=== PATIENT | male | born 1970 | race Hispanic/Latino ===

== ENCOUNTER 2018-03-05 18:42 | Emergency (ER) | payer OTHER ==
[2018-03-05 19:47] LABS: HEMATOCRIT 43.7 % (42-54); MEAN CORPUSCULAR HGB CONC 34.1 g/dL (32.0-36.0); MEAN CORPUSCULAR VOLUME 90.9 fL (79-99); PLATELET COUNT (AUTO) 196 K/uL (130-400); RED CELL DISTRIBUTION WIDTH 13.3 % (11.0-15.5); WHITE BLOOD COUNT (AUTO) 21.9 K/uL (4.8-10.8)
[2018-03-05] MEDS ORDERED: CLINDAMYCIN 600 MG/D5% WATER 50 ML IV ONE (19:47)
[2018-03-05 20:03] LABS: CREATININE 2.8 mg/dL (0.5-1.5); POTASSIUM 3.6 mmol/L (3.5-5.1)
[2018-03-05 20:06] LABS: INR 1.1 (0.85-1.15); PARTIAL THROMBOPLASTIN TIME 24.7 SEC (26.3-35.5); PROTHROMBIN TIME 11.3 SEC (9.6-11.6)
[2018-03-05 20:12] LABS: B-TYPE NATRIURETIC PEPTIDE 147 pg/mL (0-100)
[2018-03-05 20:17] LABS: BAND NEUTROPHILS % (MANUAL) 24 % (0-2); METAMYELOCYTES % 3 % (0-0); MONOCYTES % (MANUAL) 2 % (2-9); PLATELET MORPHOLOGY COMMENT ADEQUATE; SEGMENTED NEUTROPHILS % 71 % (40-70)
[2018-03-05 20:18] LABS: ALBUMIN 3.5 g/dL (3.5-5.0); CREATINE KINASE MB 1.1 ng/mL (0.5-3.6); CRP QUANTITATIVE 113.3 mg/L (0.00-9.0); TOTAL PROTEIN, SERUM 7.9 g/dL (6.0-8.3)
[2018-03-05 20:51] LABS: ERYTHROCYTE SEDIMENTATION RATE 6 MM/HR (0-15)
== END 2018-03-05 21:14 | disposition home or self-care (01) ==
LOC: EDH 18:42
DX: L03.116 Cellulitis of left lower limb (principal); I10 Essential (primary) hypertension; G47.30 Sleep apnea, unspecified
CPT/HCPCS: 36415; 71045; 80053; 82550; 82553; 83880; 84484; 85025; 85610; 85651; 85730; 86140; 93005; 93971; 96365; 99285; J3490

== ENCOUNTER 2018-03-09 12:40 | Inpatient (IN) | payer OTHER ==
[~2018-03-09] VITALS: Ht 175.3 cm; Wt 166.1 kg
[2018-03-09] MEDS ORDERED: VANCOMYCIN 1GM+NS 250ML 500 ML IV ONE (13:37)
[2018-03-09 13:42] LABS: BASOPHILS % (AUTO) 0.4 % (0.0-5.0); EOSINOPHILS % (AUTO) 0.6 % (0.0-8.0); HEMATOCRIT 42.4 % (42-54); LYMPHOCYTES % (AUTO) 10.1 % (21.0-51.0); MEAN CORPUSCULAR HEMOGLOBIN 30.4 pg (27.0-33.0); MEAN CORPUSCULAR HGB CONC 33.7 g/dL (32.0-36.0); MEAN CORPUSCULAR VOLUME 90.2 fL (79-99); MONOCYTES % (AUTO) 12.9 % (3.0-13.0); PLATELET COUNT (AUTO) 223 K/uL (130-400); WHITE BLOOD COUNT (AUTO) 12.2 K/uL (4.8-10.8)
[2018-03-09 13:58] LABS: CREATININE 0.9 mg/dL (0.5-1.5)
[2018-03-09 14:09] LABS: BILIRUBIN,TOTAL 0.4 mg/dL (0.2-1.0); TOTAL PROTEIN, SERUM 7.2 g/dL (6.0-8.3)
[2018-03-09] MEDS ORDERED: VANCOMYCIN 1.5 GM in SODIUM CHLORIDE 0.9% 250 ML IV ONE (16:30)
[2018-03-09] MEDS ORDERED: ACETAMINOPHEN 325 MG TAB PO PRN (16:45)
[2018-03-09] MEDS ORDERED: COMPOUND IV REFRIGERATED 1 EACH IVSOLN MISC PRN (16:45)
[2018-03-09 20:21] VITALS: BP 189/96
[2018-03-09 23:10] VITALS: BP 151/77
[2018-03-10] MEDS: ZOSYN 3.375GM+NS 50ML 50 ML IV SCH ×3 (02:39→18:17)
[2018-03-10 03:21] VITALS: BP 144/73
[2018-03-10 04:46] LABS: HEMATOCRIT 40.3 % (42-54); MEAN CORPUSCULAR HEMOGLOBIN 30.5 pg (27.0-33.0); MEAN CORPUSCULAR HGB CONC 33.9 g/dL (32.0-36.0); MEAN CORPUSCULAR VOLUME 89.9 fL (79-99); PLATELET COUNT (AUTO) 196 K/uL (130-400); RED BLOOD CELL COUNT(AUTO) 4.48 MIL/uL (4.50-6.20); RED CELL DISTRIBUTION WIDTH 14.1 % (11.0-15.5); WHITE BLOOD COUNT (AUTO) 11.1 K/uL (4.8-10.8)
[2018-03-10 04:54] LABS: CARBON DIOXIDE 30 mmol/L (21-32); CHLORIDE 97 mmol/L (101-111); CHOLESTEROL 147 mg/dL (<200); CREATININE 0.8 mg/dL (0.5-1.5); GLOMERULAR FILTR. RATE CALC 110 mL/min (>60); GLUCOSE,RANDOM 106 mg/dL (70-105); LDL DIRECT 96 mg/dL (0-99); POTASSIUM 3.9 mmol/L (3.5-5.1); SODIUM SERUM 135 mmol/L (136-145); TRIGLYCERIDES 265 mg/dL (30-200); UREA NITROGEN, BLOOD 13 mg/dL (7-18)
[2018-03-10 04:57] LABS: HEMOGLOBIN A1C 6.1 % (4.0-6.0)
[2018-03-10 04:59] LABS: HDL CHOLESTEROL < 10 mg/dL (29-71)
[2018-03-10] MEDS ORDERED: POTASSIUM CHLORIDE 10% ELIXIR 20 MEQ/15 ML UDCUP PO PRN (05:15)
[2018-03-10] MEDS ORDERED: POTASSIUM CHLORIDE 20MEQ/100ML 100 ML IV PRN (05:15)
[2018-03-10] MEDS ORDERED: DEXTROSE 50%-WATER 50 ML DISP.SYRIN IV PRN (05:15)
[2018-03-10] MEDS ORDERED: GLUCAGON 1MG KIT 1 MG ML IM PRN (05:15)
[2018-03-10] MEDS ORDERED: ACETAMINOPHEN 325 MG TAB PO PRN (05:15)
[2018-03-10] MEDS ORDERED: LIDOCAINE HCL-MPF 1% 2ML VIAL IJ PRN (05:15)
[2018-03-10] MEDS: SODIUM CHLORIDE 0.9% 1000ML 1,000 ML IV SCH (05:15)
[2018-03-10] MEDS: INSULIN R PO SS1 SQ SCH ×4 (05:59→20:16)
[2018-03-10] MEDS: VANCOMYCIN 1.75 GM in SODIUM CHLORIDE 0.9% 250 ML IV SCH ×2 (07:11→18:17)
[2018-03-10 08:21] VITALS: BP 159/83
[2018-03-10] MEDS: FAMOTIDINE 20MG TAB 20 MG TAB PO SCH ×2 (09:08→19:58)
[2018-03-10] MEDS: ENOXAPARIN SODIUM 30 MG/0.3 ML SQ SCH ×2 (09:09→20:03)
[2018-03-10 11:15] VITALS: BP 135/75
[2018-03-10] MEDS ORDERED: HYDRALAZINE HCL 20 MG/ML VIAL IV PRN (13:00)
[2018-03-10 18:00] VITALS: BP 130/67
[2018-03-10 20:00] VITALS: BP 142/74
[2018-03-11] VITALS: BP 140/74
[2018-03-11] MEDS: SODIUM CHLORIDE 0.9% 1000ML 1,000 ML IV SCH ×3 (01:15→11:47)
[2018-03-11] MEDS: ZOSYN 3.375GM+NS 50ML 50 ML IV SCH ×3 (02:16→18:21)
[2018-03-11 04:00] VITALS: BP 142/78
[2018-03-11] MEDS: INSULIN R PO SS1 SQ SCH ×3 (06:20→21:00)
[2018-03-11 06:48] LABS: BASOPHILS % (AUTO) 0.2 % (0.0-5.0); EOSINOPHILS % (AUTO) 1.4 % (0.0-8.0); HEMATOCRIT 40.4 % (42-54); LYMPHOCYTES % (AUTO) 14.1 % (21.0-51.0); MEAN CORPUSCULAR HEMOGLOBIN 30.8 pg (27.0-33.0); MEAN CORPUSCULAR VOLUME 90.7 fL (79-99); MONOCYTES % (AUTO) 13.7 % (3.0-13.0); NEUTROPHILS % (AUTO) 70.6 % (40.0-77.0); NUCLEATED RED BLOOD CELLS 0.1 % (0.0-0.19); PLATELET COUNT (AUTO) 241 K/uL (130-400); RED BLOOD CELL COUNT(AUTO) 4.46 MIL/uL (4.50-6.20); RED CELL DISTRIBUTION WIDTH 14.6 % (11.0-15.5); WHITE BLOOD COUNT (AUTO) 10.4 K/uL (4.8-10.8)
[2018-03-11 07:10] LABS: CREATININE 0.8 mg/dL (0.5-1.5); POTASSIUM 3.9 mmol/L (3.5-5.1)
[2018-03-11 08:03] VITALS: BP 145/87
[2018-03-11] MEDS: FAMOTIDINE 20MG TAB 20 MG TAB PO SCH ×2 (08:35→21:53)
[2018-03-11] MEDS: ENOXAPARIN SODIUM 30 MG/0.3 ML SQ SCH ×2 (08:36→21:55)
[2018-03-11] MEDS: VANCOMYCIN 1.75 GM in SODIUM CHLORIDE 0.9% 250 ML IV SCH ×3 (08:37→21:59)
[2018-03-11 11:09] VITALS: BP 145/94
[2018-03-11 16:03] VITALS: BP 157/94
[2018-03-11 20:00] VITALS: BP 150/92
[2018-03-12] VITALS: BP 150/96
[2018-03-12] MEDS: ZOSYN 3.375GM+NS 50ML 50 ML IV SCH ×3 (02:11→18:13)
[2018-03-12] MEDS: SODIUM CHLORIDE 0.9% 1000ML 1,000 ML IV SCH ×2 (02:17→18:13)
[2018-03-12 04:00] VITALS: BP 130/78
[2018-03-12] MEDS: INSULIN R PO SS1 SQ SCH ×4 (06:11→21:00)
[2018-03-12] MEDS: VANCOMYCIN 1.75 GM in SODIUM CHLORIDE 0.9% 250 ML IV SCH ×3 (06:25→22:13)
[2018-03-12 07:42] VITALS: BP 132/68
[2018-03-12] MEDS: ENOXAPARIN SODIUM 30 MG/0.3 ML SQ SCH ×2 (10:06→22:12)
[2018-03-12] MEDS: FAMOTIDINE 20MG TAB 20 MG TAB PO SCH ×2 (10:06→22:07)
[2018-03-12 11:08] VITALS: BP 145/91
[2018-03-12 16:17] VITALS: BP 143/87
[2018-03-12 20:00] VITALS: BP 158/90
[2018-03-13] VITALS: BP 142/96
[2018-03-13] MEDS: ZOSYN 3.375GM+NS 50ML 50 ML IV SCH ×3 (02:32→18:39)
[2018-03-13 04:00] VITALS: BP 166/94
[2018-03-13 06:05] LABS: HEMATOCRIT 37.6 % (42-54); MEAN CORPUSCULAR HEMOGLOBIN 30.9 pg (27.0-33.0); MEAN CORPUSCULAR HGB CONC 34.4 g/dL (32.0-36.0); NUCLEATED RED BLOOD CELLS 0.1 % (0.0-0.19); PLATELET COUNT (AUTO) 347 K/uL (130-400); RED BLOOD CELL COUNT(AUTO) 4.18 MIL/uL (4.50-6.20); RED CELL DISTRIBUTION WIDTH 14.5 % (11.0-15.5); WHITE BLOOD COUNT (AUTO) 9.9 K/uL (4.8-10.8)
[2018-03-13 06:21] LABS: ALBUMIN 2.4 g/dL (3.5-5.0); BILIRUBIN,TOTAL 0.7 mg/dL (0.2-1.0); CREATININE 0.9 mg/dL (0.5-1.5); TOTAL PROTEIN, SERUM 7.8 g/dL (6.0-8.3)
[2018-03-13] MEDS: INSULIN R PO SS1 SQ SCH ×4 (06:23→21:00)
[2018-03-13] MEDS: SODIUM CHLORIDE 0.9% 1000ML 1,000 ML IV SCH ×2 (07:20→13:15)
[2018-03-13] MEDS: VANCOMYCIN 1.75 GM in SODIUM CHLORIDE 0.9% 250 ML IV SCH ×3 (07:23→22:18)
[2018-03-13 07:48] VITALS: BP 153/88
[2018-03-13] MEDS: FAMOTIDINE 20MG TAB 20 MG TAB PO SCH ×2 (09:26→22:18)
[2018-03-13] MEDS: ENOXAPARIN SODIUM 30 MG/0.3 ML SQ SCH ×2 (09:27→22:20)
[2018-03-13 12:48] VITALS: BP 154/86
[2018-03-13 15:47] VITALS: BP 162/92
[2018-03-13 20:00] VITALS: BP 163/91
[2018-03-14] VITALS (7 sets, daily range): BP systolic 138–172; BP diastolic 85–104
[2018-03-14] MEDS: ZOSYN 3.375GM+NS 50ML 50 ML IV SCH ×2 (02:56→10:01)
[2018-03-14] MEDS: SODIUM CHLORIDE 0.9% 1000ML 1,000 ML IV SCH ×3 (03:06→19:15)
[2018-03-14] MEDS: INSULIN R PO SS1 SQ SCH ×4 (06:03→21:00)
[2018-03-14] MEDS: VANCOMYCIN 1.75 GM in SODIUM CHLORIDE 0.9% 250 ML IV SCH ×2 (06:26→14:00)
[2018-03-14] MEDS: FAMOTIDINE 20MG TAB 20 MG TAB PO SCH ×2 (07:32→21:59)
[2018-03-14] MEDS: ENOXAPARIN SODIUM 30 MG/0.3 ML SQ SCH ×2 (07:33→21:59)
[2018-03-14] MEDS ORDERED: CEFAZOLIN 1GM / D5W 50ML 50 ML IV SCH (11:30)
[2018-03-14] MEDS: CEFAZOLIN SODIUM 1 GM VIAL IVP SCH ×2 (13:42→21:59)
[2018-03-14] MEDS: HYDROCHLOROTHIAZIDE 25 MG TABLET PO SCH (18:18)
[2018-03-14] MEDS: VANCOMYCIN 1.5 GM in SODIUM CHLORIDE 0.9% 250 ML IV SCH (21:58)
[2018-03-15 03:00] VITALS: BP 142/97
[2018-03-15] MEDS: CEFAZOLIN SODIUM 1 GM VIAL IVP SCH ×3 (03:17→22:22)
[2018-03-15 04:05] LABS: HEMATOCRIT 38.1 % (42-54); MEAN CORPUSCULAR HEMOGLOBIN 30.5 pg (27.0-33.0); MEAN CORPUSCULAR HGB CONC 33.8 g/dL (32.0-36.0); MEAN CORPUSCULAR VOLUME 90.2 fL (79-99); NUCLEATED RED BLOOD CELLS 0.1 % (0.0-0.19); PLATELET COUNT (AUTO) 410 K/uL (130-400); RED BLOOD CELL COUNT(AUTO) 4.22 MIL/uL (4.50-6.20); WHITE BLOOD COUNT (AUTO) 11.3 K/uL (4.8-10.8)
[2018-03-15 04:17] LABS: MAGNESIUM 1.9 mg/dL (1.80-2.40); POTASSIUM 3.5 mmol/L (3.5-5.1)
[2018-03-15] MEDS: INSULIN R PO SS1 SQ SCH ×4 (06:23→21:00)
[2018-03-15] MEDS: VANCOMYCIN 1.5 GM in SODIUM CHLORIDE 0.9% 250 ML IV SCH ×3 (06:23→22:22)
[2018-03-15 07:00] VITALS: BP 159/87
[2018-03-15] MEDS: FAMOTIDINE 20MG TAB 20 MG TAB PO SCH ×2 (09:04→22:21)
[2018-03-15] MEDS: HYDROCHLOROTHIAZIDE 25 MG TABLET PO SCH (09:04)
[2018-03-15] MEDS: ENOXAPARIN SODIUM 30 MG/0.3 ML SQ SCH ×2 (09:05→22:36)
[2018-03-15 11:00] VITALS: BP 144/92
[2018-03-15 16:11] VITALS: BP 140/96
[2018-03-15 19:00] VITALS: BP 135/77
[2018-03-15] MEDS: SODIUM CHLORIDE 0.9% 1000ML 1,000 ML IV SCH (22:36)
[2018-03-15 23:45] VITALS: BP 136/81
[2018-03-16 03:10] VITALS: BP 146/88
[2018-03-16 04:02] LABS: HEMATOCRIT 39.1 % (42-54); MEAN CORPUSCULAR HEMOGLOBIN 29.9 pg (27.0-33.0); MEAN CORPUSCULAR HGB CONC 33.3 g/dL (32.0-36.0); PLATELET COUNT (AUTO) 404 K/uL (130-400); RED BLOOD CELL COUNT(AUTO) 4.35 MIL/uL (4.50-6.20); RED CELL DISTRIBUTION WIDTH 14.3 % (11.0-15.5); WHITE BLOOD COUNT (AUTO) 11.5 K/uL (4.8-10.8)
[2018-03-16] MEDS: CEFAZOLIN SODIUM 1 GM VIAL IVP SCH ×3 (05:52→22:59)
[2018-03-16] MEDS: VANCOMYCIN 1.5 GM in SODIUM CHLORIDE 0.9% 250 ML IV SCH ×3 (05:52→23:00)
[2018-03-16] MEDS: INSULIN R PO SS1 SQ SCH ×4 (06:32→21:00)
[2018-03-16 08:19] VITALS: BP 143/93
[2018-03-16] MEDS: HYDROCHLOROTHIAZIDE 25 MG TABLET PO SCH (08:55)
[2018-03-16] MEDS: LISINOPRIL 10 MG TABLET PO SCH (08:55)
[2018-03-16] MEDS: ENOXAPARIN SODIUM 30 MG/0.3 ML SQ SCH ×2 (08:57→23:01)
[2018-03-16] MEDS: FAMOTIDINE 20MG TAB 20 MG TAB PO SCH ×2 (08:57→23:00)
[2018-03-16 11:42] VITALS: BP 134/87
[2018-03-16 16:01] VITALS: BP 135/88
[2018-03-16 19:30] VITALS: BP 136/77
[2018-03-17] VITALS: BP_SYST 133; BP_SYST 145; BP_DIAS 79; BP_DIAS 86
[2018-03-17 04:00] VITALS: BP 129/75
[2018-03-17 04:51] LABS: HEMATOCRIT 36.9 % (42-54); MEAN CORPUSCULAR HEMOGLOBIN 30.7 pg (27.0-33.0); MEAN CORPUSCULAR HGB CONC 33.9 g/dL (32.0-36.0); MEAN CORPUSCULAR VOLUME 90.5 fL (79-99); PLATELET COUNT (AUTO) 391 K/uL (130-400); RED BLOOD CELL COUNT(AUTO) 4.07 MIL/uL (4.50-6.20); RED CELL DISTRIBUTION WIDTH 13.8 % (11.0-15.5); WHITE BLOOD COUNT (AUTO) 10.1 K/uL (4.8-10.8)
[2018-03-17] MEDS: CEFAZOLIN SODIUM 1 GM VIAL IVP SCH ×3 (04:57→19:57)
[2018-03-17 05:21] LABS: CREATININE 1.2 mg/dL (0.5-1.5); MAGNESIUM 1.9 mg/dL (1.80-2.40); POTASSIUM 3.3 mmol/L (3.5-5.1)
[2018-03-17] MEDS: INSULIN R PO SS1 SQ SCH ×3 (06:41→21:00)
[2018-03-17] MEDS: VANCOMYCIN 1.5 GM in SODIUM CHLORIDE 0.9% 250 ML IV SCH ×3 (06:52→22:43)
[2018-03-17 08:22] VITALS: BP 131/84
[2018-03-17] MEDS: HYDROCHLOROTHIAZIDE 25 MG TABLET PO SCH (11:22)
[2018-03-17] MEDS: FAMOTIDINE 20MG TAB 20 MG TAB PO SCH ×2 (11:22→19:57)
[2018-03-17] MEDS: LISINOPRIL 10 MG TABLET PO SCH (11:22)
[2018-03-17] MEDS: ENOXAPARIN SODIUM 30 MG/0.3 ML SQ SCH ×2 (11:23→19:58)
[2018-03-17 11:49] VITALS: BP 128/68
[2018-03-17 16:54] VITALS: BP 121/73
[2018-03-17 19:00] VITALS: BP 129/61
[2018-03-18 04:10] VITALS: BP 144/72
[2018-03-18 04:11] LABS: MEAN CORPUSCULAR HEMOGLOBIN 30.7 pg (27.0-33.0); MEAN CORPUSCULAR HGB CONC 33.8 g/dL (32.0-36.0); MEAN CORPUSCULAR VOLUME 90.9 fL (79-99); PLATELET COUNT (AUTO) 436 K/uL (130-400); RED BLOOD CELL COUNT(AUTO) 4.18 MIL/uL (4.50-6.20); RED CELL DISTRIBUTION WIDTH 13.5 % (11.0-15.5); WHITE BLOOD COUNT (AUTO) 9.8 K/uL (4.8-10.8)
[2018-03-18 04:15] LABS: CREATININE 1.2 mg/dL (0.5-1.5); POTASSIUM 3.4 mmol/L (3.5-5.1)
[2018-03-18] MEDS: CEFAZOLIN SODIUM 1 GM VIAL IVP SCH ×3 (04:16→20:40)
[2018-03-18] MEDS: INSULIN R PO SS1 SQ SCH ×4 (05:56→21:00)
[2018-03-18] MEDS: VANCOMYCIN 1.5 GM in SODIUM CHLORIDE 0.9% 250 ML IV SCH (05:58)
[2018-03-18 08:04] VITALS: BP 137/72
[2018-03-18] MEDS: FAMOTIDINE 20MG TAB 20 MG TAB PO SCH ×2 (10:16→20:41)
[2018-03-18] MEDS: LISINOPRIL 10 MG TABLET PO SCH (10:16)
[2018-03-18] MEDS: HYDROCHLOROTHIAZIDE 25 MG TABLET PO SCH (10:16)
[2018-03-18] MEDS: ENOXAPARIN SODIUM 30 MG/0.3 ML SQ SCH ×2 (10:17→20:42)
[2018-03-18 11:43] VITALS: BP 139/80
[2018-03-18] MEDS ORDERED: VANCOMYCIN PROTOCOL PER PHARMACY IV SCH (14:45)
[2018-03-18 16:12] VITALS: BP 124/71
[2018-03-18 19:05] VITALS: BP 115/66
[2018-03-18] MEDS ORDERED: VANCOMYCIN 1.5 GM in SODIUM CHLORIDE 0.9% 250 ML IV SCH (21:00)
[2018-03-18 23:00] VITALS: BP 143/85
[2018-03-19 03:25] VITALS: BP 146/85
[2018-03-19] MEDS: CEFAZOLIN SODIUM 1 GM VIAL IVP SCH ×3 (04:35→19:57)
[2018-03-19] MEDS: INSULIN R PO SS1 SQ SCH ×4 (07:05→20:56)
[2018-03-19 07:38] VITALS: BP 147/78
[2018-03-19] MEDS: FAMOTIDINE 20MG TAB 20 MG TAB PO SCH ×2 (10:57→19:57)
[2018-03-19] MEDS: HYDROCHLOROTHIAZIDE 25 MG TABLET PO SCH (10:57)
[2018-03-19] MEDS: LISINOPRIL 10 MG TABLET PO SCH (10:58)
[2018-03-19] MEDS: ENOXAPARIN SODIUM 30 MG/0.3 ML SQ SCH ×2 (10:58→19:57)
[2018-03-19] MEDS ORDERED: VANCOMYCIN 1.5 GM in SODIUM CHLORIDE 0.9% 250 ML IV SCH (11:15)
[2018-03-19] MEDS: VANCOMYCIN 1.5 GM in SODIUM CHLORIDE 0.9% 250 ML IV SCH (11:41)
[2018-03-19 12:12] VITALS: BP 135/83
[2018-03-19 15:58] VITALS: BP 130/70
[2018-03-19 19:00] VITALS: BP 120/54
[2018-03-20] VITALS: BP 149/95
[2018-03-20] MEDS: VANCOMYCIN 1.5 GM in SODIUM CHLORIDE 0.9% 250 ML IV SCH ×3 (00:19→23:47)
[2018-03-20 04:05] VITALS: BP 107/53
[2018-03-20] MEDS: CEFAZOLIN SODIUM 1 GM VIAL IVP SCH ×3 (04:36→21:08)
[2018-03-20 06:24] LABS: HEMATOCRIT 37.3 % (42-54); MEAN CORPUSCULAR HEMOGLOBIN 30.3 pg (27.0-33.0); MEAN CORPUSCULAR HGB CONC 33.5 g/dL (32.0-36.0); MEAN CORPUSCULAR VOLUME 90.3 fL (79-99); NUCLEATED RED BLOOD CELLS 0.1 % (0.0-0.19); PLATELET COUNT (AUTO) 422 K/uL (130-400); RED BLOOD CELL COUNT(AUTO) 4.14 MIL/uL (4.50-6.20); RED CELL DISTRIBUTION WIDTH 13.5 % (11.0-15.5)
[2018-03-20 06:34] LABS: CREATININE 1.2 mg/dL (0.5-1.5); POTASSIUM 3.3 mmol/L (3.5-5.1)
[2018-03-20] MEDS: INSULIN R PO SS1 SQ SCH ×4 (06:42→21:00)
[2018-03-20 08:00] VITALS: BP 123/70
[2018-03-20] MEDS: HYDROCHLOROTHIAZIDE 25 MG TABLET PO SCH (09:15)
[2018-03-20] MEDS: FAMOTIDINE 20MG TAB 20 MG TAB PO SCH ×2 (09:15→21:09)
[2018-03-20] MEDS: LISINOPRIL 10 MG TABLET PO SCH (09:16)
[2018-03-20] MEDS: ENOXAPARIN SODIUM 30 MG/0.3 ML SQ SCH ×2 (09:17→21:09)
[2018-03-20 12:00] VITALS: BP 101/56
[2018-03-20 16:00] VITALS: BP 134/73
[2018-03-20 19:20] VITALS: BP 108/71
[2018-03-21] VITALS (7 sets, daily range): BP systolic 98–139; BP diastolic 55–80
[2018-03-21] MEDS: CEFAZOLIN SODIUM 1 GM VIAL IVP SCH ×3 (04:40→19:50)
[2018-03-21] MEDS: INSULIN R PO SS1 SQ SCH ×4 (05:59→20:42)
[2018-03-21] MEDS: ENOXAPARIN SODIUM 30 MG/0.3 ML SQ SCH ×2 (09:29→19:52)
[2018-03-21] MEDS: HYDROCHLOROTHIAZIDE 25 MG TABLET PO SCH (09:29)
[2018-03-21] MEDS: FAMOTIDINE 20MG TAB 20 MG TAB PO SCH ×2 (09:29→19:51)
[2018-03-21] MEDS: LISINOPRIL 10 MG TABLET PO SCH (09:30)
[2018-03-21] MEDS: VANCOMYCIN 1.5 GM in SODIUM CHLORIDE 0.9% 250 ML IV SCH (12:15)
[2018-03-21] MEDS: POTASSIUM CHLORIDE 20 MEQ ERTAB PO PRN ×3 (12:27→18:33)
[2018-03-22] MEDS: VANCOMYCIN 1.5 GM in SODIUM CHLORIDE 0.9% 250 ML IV SCH ×2 (00:20→11:54)
[2018-03-22 04:00] VITALS: BP 122/77
[2018-03-22] MEDS: CEFAZOLIN SODIUM 1 GM VIAL IVP SCH ×3 (04:57→21:45)
[2018-03-22] MEDS: INSULIN R PO SS1 SQ SCH ×4 (05:55→21:00)
[2018-03-22 06:21] LABS: BASOPHILS % (AUTO) 0.8 % (0.0-5.0); EOSINOPHILS % (AUTO) 2.6 % (0.0-8.0); HEMATOCRIT 36.4 % (42-54); LYMPHOCYTES % (AUTO) 14.6 % (21.0-51.0); MEAN CORPUSCULAR HEMOGLOBIN 30.9 pg (27.0-33.0); MEAN CORPUSCULAR HGB CONC 34.2 g/dL (32.0-36.0); MEAN CORPUSCULAR VOLUME 90.3 fL (79-99); PLATELET COUNT (AUTO) 434 K/uL (130-400); RED BLOOD CELL COUNT(AUTO) 4.03 MIL/uL (4.50-6.20); RED CELL DISTRIBUTION WIDTH 13.4 % (11.0-15.5); WHITE BLOOD COUNT (AUTO) 6.9 K/uL (4.8-10.8)
[2018-03-22 06:27] LABS: CREATININE 1.3 mg/dL (0.5-1.5); POTASSIUM 3.8 mmol/L (3.5-5.1)
[2018-03-22 08:11] VITALS: BP 132/78
[2018-03-22] MEDS: FAMOTIDINE 20MG TAB 20 MG TAB PO SCH ×2 (09:47→21:45)
[2018-03-22] MEDS: LISINOPRIL 10 MG TABLET PO SCH (09:48)
[2018-03-22] MEDS: HYDROCHLOROTHIAZIDE 25 MG TABLET PO SCH (09:48)
[2018-03-22] MEDS: ENOXAPARIN SODIUM 30 MG/0.3 ML SQ SCH ×2 (09:49→21:45)
[2018-03-22 11:36] VITALS: BP 144/88
[2018-03-22 16:13] VITALS: BP 138/76
[2018-03-22 20:00] VITALS: BP 125/69
[2018-03-22 23:46] VITALS: BP 105/67
[2018-03-23] MEDS: VANCOMYCIN 1.5 GM in SODIUM CHLORIDE 0.9% 250 ML IV SCH ×2 (00:04→12:17)
[2018-03-23 04:00] VITALS: BP 121/70
[2018-03-23 04:16] LABS: BASOPHILS % (AUTO) 1.1 % (0.0-5.0); EOSINOPHILS % (AUTO) 2.6 % (0.0-8.0); HEMATOCRIT 36.9 % (42-54); LYMPHOCYTES % (AUTO) 14.2 % (21.0-51.0); MEAN CORPUSCULAR HEMOGLOBIN 30.6 pg (27.0-33.0); MEAN CORPUSCULAR HGB CONC 33.8 g/dL (32.0-36.0); MEAN CORPUSCULAR VOLUME 90.5 fL (79-99); MONOCYTES % (AUTO) 12.4 % (3.0-13.0); NEUTROPHILS % (AUTO) 69.7 % (40.0-77.0); PLATELET COUNT (AUTO) 461 K/uL (130-400); RED BLOOD CELL COUNT(AUTO) 4.08 MIL/uL (4.50-6.20); RED CELL DISTRIBUTION WIDTH 13.4 % (11.0-15.5); WHITE BLOOD COUNT (AUTO) 7.1 K/uL (4.8-10.8)
[2018-03-23 04:19] LABS: CREATININE 1.4 mg/dL (0.5-1.5)
[2018-03-23] MEDS: CEFAZOLIN SODIUM 1 GM VIAL IVP SCH ×2 (05:07→12:16)
[2018-03-23] MEDS: INSULIN R PO SS1 SQ SCH ×2 (07:30→11:22)
[2018-03-23 07:44] VITALS: BP 128/78
[2018-03-23] MEDS: LISINOPRIL 10 MG TABLET PO SCH (09:28)
[2018-03-23] MEDS: ENOXAPARIN SODIUM 30 MG/0.3 ML SQ SCH (09:29)
[2018-03-23] MEDS: FAMOTIDINE 20MG TAB 20 MG TAB PO SCH (09:29)
[2018-03-23] MEDS: HYDROCHLOROTHIAZIDE 25 MG TABLET PO SCH (09:29)
[2018-03-23 11:15] VITALS: BP 107/65
[2018-03-23 16:29] VITALS: BP 128/72
== END 2018-03-23 18:00 | disposition home or self-care (01) | DRG 872 ==
LOC: EDH 12:40 → EDHIP 12:41 → 3CH 19:42
PROVIDERS: ADMIT Internal Medicine Nephrology; ATTEND Internal Medicine Nephrology
DX: A41.9 Sepsis, unspecified organism (principal); E66.01 Morbid (severe) obesity due to excess calories; L03.116 Cellulitis of left lower limb; Z68.43 Body mass index [BMI] 50.0-59.9, adult; I48.0 Paroxysmal atrial fibrillation; E11.9 Type 2 diabetes mellitus without complications; E66.9 Obesity, unspecified; G47.30 Sleep apnea, unspecified; I10 Essential (primary) hypertension; G47.33 Obstructive sleep apnea (adult) (pediatric); Z82.49 Family history of ischemic heart disease and other diseases of the circulatory system; Z79.84 Long term (current) use of oral hypoglycemic drugs; Z83.3 Family history of diabetes mellitus
CPT/HCPCS: 36415; 73700; 80048; 80053; 80061; 80202; 82948; 83036; 83735; 85025; 85027; 85651; 86140; 87040; 93005; A4218; J0690; J1650; J2543; J3370; J7030

== ENCOUNTER → 2022-03-26 | Outpatient (CLI) | payer OTHER | LOC: SHCH 13:21 | PROVIDERS: ATTEND Internal Medicine Cardiovascular Disease | DX: I87.2 Venous insufficiency (chronic) (peripheral) (principal) | CPT/HCPCS: 93970 ==